=== PATIENT | female | born 1990 | race Hispanic/Latino ===

== ENCOUNTER 2025-05-03 18:59 | Emergency (ER) | payer OTHER ==
[~2025-05-03] VITALS: Ht 160 cm; Wt 73.5 kg
[2025-05-03 19:03] VITALS: TEMP 98.3
[2025-05-03 19:22] LABS: BASOPHILS % 0.3 % (0.0-1.0); EOSINOPHILS % 3.1 % (0.0-6.0); LYMPHOCYTES % 12.4 % (18.0-39.1); MONOCYTES % 7.4 % (4.4-11.3); NEUTROPHILS % 76.6 % (38.7-80.0); RED CELL DISTRIBUTION WIDTH 12.7 % (11.7-14.4)
[2025-05-03] MEDS: ONDANSETRON HCL INJ 2MG/ML 2ML 2 MG/ML VIAL IV STA (19:23)
[2025-05-03] MEDS: SODIUM CHLORIDE 0.9% 1000ML 1,000 ML IV ONE (19:24)
[2025-05-03] MEDS: DICYCLOMINE HCL 20 MG/2 ML VIAL IM ONE (19:24)
[2025-05-03 19:44] LABS: EST GLOMERULAR FILTRATION RATE 112.0 ML/MIN (>=60)
[2025-05-03 19:45] LABS: LEUKOCYTE ESTERASE ,URINE TRACE (NEGATIVE); PROTEIN,URINE DIPSTICK NEGATIVE (NEGATIVE)
[2025-05-03 19:46] LABS: URINE UROBILINOGEN 0.2 mg/dL (0.2 - 1)
[2025-05-03] MEDS ORDERED: IOPAMIDOL 370 MG/ML 100 ML INFUS..BTL INJ ONE (19:51)
[2025-05-03] MEDS: KETOROLAC TROMETHAMINE 30 MG/ML VIAL IV STA (19:53)
[2025-05-03 19:59] LABS: EPITHELIAL CELLS,URINE MANY /LPF
[2025-05-03 21:10] VITALS: PULSE 83; RESP 17
[2025-05-03] MEDS ORDERED: ONDANSETRON ODT4 MG SL (21:45)
[2025-05-03] MEDS ORDERED: METRONIDAZOLE500 MG PO (21:45)
[2025-05-03] MEDS ORDERED: DICYCLOMINE HCL20 MG PO (21:45)
[2025-05-03] MEDS ORDERED: CIPRO500 MG PO (21:45)
[2025-05-03 21:57] VITALS: BP 109/64; PULSE 81; RESP 17; TEMP 98.1; O2SAT 99
== END 2025-05-03 22:06 | disposition home or self-care (01) ==
LOC: ER 19:12
DX: R10.30 Lower abdominal pain, unspecified (principal); A02.0 Salmonella enteritis; K76.0 Fatty (change of) liver, not elsewhere classified
CPT/HCPCS: 36415; 74177; 80053; 81001; 84702; 85025; 99284; J0500; J1885; J2405; J2470; J7030; Q9967